=== PATIENT | male | born 1970 | race Caucasian/White ===

== ENCOUNTER 2020-06-28 09:58 | Emergency (ER) | payer MEDICARE ==
[~2020-06-28] VITALS: Ht 172.7 cm; Wt 75.0 kg
[~2020-06-28 09:58] MED LIST: ADDERALL 5 MG TA5 M1 PO; CARAFATE1 G PO; COMPAZINE25 MG RC; NORVASC5 MG PO; OMEPRAZOLE20 M1 PO; PEPCID40 MG PO; ZOFRAN ODT4 MG/UDTAB PO
[2020-06-28 10:32] VITALS: BP 149/106; Ht 172.7 cm; Wt 75.0 kg
[2020-06-28 11:00] LABS: BASOPHILS 0.1 % (0-2); EOSINOPHILS 0 % (0-7); HEMATOCRIT 44.5 % (42.0-54.0); HEMOGLOBIN 15.3 g/dL (13.5-17.5); IMMATURE GRANULOCYTES 0.2 % (0-5); LYMPHOCYTE ABS# 1.73 10x3/uL (1.32-3.57); LYMPHOCYTES 18.4 % (15-50); MCH 30.7 pg (26.0-34.0); MCHC 34.4 g/dL (31.0-37.0); MCV 89.2 fL (80.0-100.0); MEAN PLATELET VOLUME 10.2 fL (7.4-10.4); NEUTROPHILS 74.3 % (40-80); PLATELET COUNT 278 10x3/uL (130-400); RBC 4.99 10x6/uL (4.20-6.10); RDW 13.1 % (11.5-14.5); WBC 9.4 10x3/uL (4.8-10.8)
[2020-06-28 11:04] LABS: BILIRUBIN NEGATIVE (NEGATIVE); KETONE NEGATIVE (NEGATIVE); NITRITE NEGATIVE (NEGATIVE); UROBILINOGEN NORMAL mg/dL (< 2)
[2020-06-28 11:07] LABS: BACTERIA FEW HPF (NONE SEEN); SQUAMOUS EPITHELIAL 0-5 HPF (0-4); WHITE CELLS - URINE 3 HPF (0-1)
[2020-06-28 11:20] LABS: CALC OSMOLALITY 267 mosm/kg (275-300); CARBON DIOXIDE 27.7 mmol/L (21.0-32.0); CHLORIDE - SERUM 93 mmol/L (98-107); CREATININE - SERUM 1.3 mg/dL (0.6-1.3); GLUCOSE 116 mg/dL (74-106); POTASSIUM - SERUM 3.7 mmol/L (3.5-5.1); SODIUM 131 mmol/L (136-145); UREA NITROGEN 23 mg/dL (7-18); eGFR NON AFRICAN AMERICAN 62 mL/min (90-120)
[2020-06-28 11:28] LABS: ALKALINE PHOSPHATASE 87 U/L (30-120); ALT (SGPT) 33 U/L (10-68); AMYLASE - SERUM 32 U/L (25-115); BILIRUBIN - TOTAL 0.56 mg/dL (0.2-1.3); LIPASE 62 U/L (73-393); TROPONIN-I < 0.017 ng/mL (0.000-0.060)
[2020-06-28 13:27] LABS: UDS - AMPHET NEGATIVE QUAL (NEGATIVE); UDS - BARB NEGATIVE QUAL (NEGATIVE); UDS - BENZO NEGATIVE QUAL (NEGATIVE); UDS - COCAINE NEGATIVE QUAL (NEGATIVE); UDS - OPIATE NEGATIVE QUAL (NEGATIVE); UDS - PCP NEGATIVE QUAL (NEGATIVE); UDS - THC NEGATIVE QUAL (NEGATIVE)
[2020-06-28] MEDS ORDERED: CARAFATE1 G PO (15:50)
[2020-06-28] MEDS ORDERED: BENTYL10 MG PO (15:50)
[2020-06-28] MEDS ORDERED: ZOFRAN ODT4 MG/UDTAB PO (15:50)
== END 2020-06-28 16:06 | disposition home or self-care (01) ==
LOC: D.ER 09:58
PROVIDERS: Emergency Medicine
DX: R10.13 Epigastric pain (principal); R11.2 Nausea with vomiting, unspecified; E86.0 Dehydration; E87.1 Hypo-osmolality and hyponatremia; N18.9 Chronic kidney disease, unspecified; I12.9 Hypertensive chronic kidney disease with stage 1 through stage 4 chronic kidney disease, or unspecified chronic kidney disease